=== PATIENT | female | born 1970 | race Caucasian/White ===

== ENCOUNTER 2020-02-15 07:08 | Emergency (ER) | payer SELFPAY ==
[~2020-02-15] VITALS: Ht 152.4 cm; Wt 90.7 kg
[2020-02-15 09:07] VITALS: BP 166/94
== END 2020-02-15 09:07 | disposition home or self-care (01) ==
LOC: ED 07:08
DX: J70.5 Respiratory conditions due to smoke inhalation (principal); J45.909 Unspecified asthma, uncomplicated
CPT/HCPCS: 36600; Q0092